=== PATIENT | female | born 1970 | race Caucasian/White ===

== ENCOUNTER 2018-12-22 14:51 | Emergency (ER) | payer OTHER ==
[2018-12-22] MEDS ORDERED: NORMAL SALINE 1000 ML 1,000 ML IV ONE (15:16)
--- NOTE | 2018-12-22 15:18 | ER Document Report ---
ED Medical Screen (RME) - General Chief Complaint: Constipation Stated Complaint: CONSTIPATION Time Seen by Provider: 12/22/18 15:13 Mode of Arrival: Ambulatory Information source: Patient Notes: Patient presents complaining of constipation for the past 2 weeks. Last bowel movement was a week ago. Patient is only had one bowel movement in the past 2 weeks. Patient complains of low back pain and dizziness that started yesterday. Patient reports decreased appetite. Patient reports abdominal fullness although denies any pain nausea or vomiting. Patient denies any history of problems with constipation. I have greeted and performed a rapid initial assessment of this patient. A comprehensive ED assessment and evaluation of the patient, analysis of test results and completion of the medical decision making process will be conducted by additional ED providers. - Related Data Allergies/Adverse Reactions: No Known Allergies Allergy (Unverified 12/22/18 15:11) Physical Exam - Vital signs Vitals: Temp Pulse Resp BP Pulse Ox 98.4 F 72 18 132/86 H 98 12/22/18 14:56 12/22/18 14:56 12/22/18 14:56 12/22/18 14:56 12/22/18 14:56 - Abdominal Inspection: Normal Bowel sounds: Hypoactive Course - Vital Signs Vital signs: Temp Pulse Resp BP Pulse Ox 98.4 F 72 18 132/86 H 98 12/22/18 14:56 12/22/18 14:56 12/22/18 14:56 12/22/18 14:56 12/22/18 14:56
--- NOTE | 2018-12-22 15:53 | RADIOLOGY REPORT (SQ) ---
EXAM DESCRIPTION: KUB/ABDOMEN (SINGLE VIEW) COMPLETED DATE/TIME: 12/22/2018 3:44 pm REASON FOR STUDY: constipation COMPARISON: None. NUMBER OF VIEWS: One view. TECHNIQUE: Supine radiographic image of the abdomen acquired. LIMITATIONS: None. FINDINGS: BOWEL GAS PATTERN: Normal bowel gas pattern. No dilated loops. CALCIFICATIONS: No suspicious calcifications. SOFT TISSUES: No gross mass or suggestion of organomegaly. HARDWARE: None in the abdomen. BONES: No acute fracture. No worrisome bone lesions. OTHER: No other significant finding. IMPRESSION: NO RADIOGRAPHIC EVIDENCE FOR ACUTE ABDOMINAL DISEASE. TECHNICAL DOCUMENTATION: JOB ID: [id number] [employer]- All Rights Reserved Reading location - IP/workstation name: [email or web address]
[2018-12-22 17:44] LABS: APPEARANCE,URINE SLIGHTLY-CLOUDY; BILIRUBIN,URINE NEGATIVE (NEGATIVE); COLOR,URINE YELLOW; GLUCOSE, URINE NEGATIVE (NEGATIVE); KETONES,URINE NEGATIVE (NEGATIVE); PROTEIN,URINE NEGATIVE (NEGATIVE); URINE SPECIFIC GRAVITY 1.015
[2018-12-22 18:12] LABS: ABSOLUTE BASOPHILS # (AUTO) 0.1 10^3/uL (0.0-0.2); ABSOLUTE EOSINOPHILS # (AUTO) 0.1 10^3/uL (0.0-0.6); ABSOLUTE LYMPHOCYTES (AUTO) 2.2 10^3/uL (0.5-4.7); ABSOLUTE MONOCYTES (AUTO) 0.5 10^3/uL (0.1-1.4); ABSOLUTE NEUT (AUTO) 2.9 10^3/uL (1.7-8.2); BASOPHILS % (AUTO) 0.9 % (0-2); EOSINOPHILS % (AUTO) 2.3 % (0-6); HEMATOCRIT 40.4 % (36.0-47.0); HEMOGLOBIN 13.9 g/dL (12.0-15.5); LYMPHOCYTES % (AUTO) 38.3 % (13-45); MEAN CORPUSCULAR HEMOGLOBIN 33.2 pg (27.0-33.4); MEAN CORPUSCULAR HGB CONC 34.4 g/dL (32.0-36.0); MEAN CORPUSCULAR VOLUME 97 fl (80-97); MONOCYTES % (AUTO) 8.4 % (3-13); PLATELET COUNT 230 10^3/uL (150-450); RED BLOOD COUNT 4.18 10^6/uL (3.72-5.28); RED CELL DISTRIBUTION WIDTH 12.6 % (11.5-14.0); SEGMENTED NEUTROPHILS % (AUTO) 50.1 % (42-78); TOTAL CELLS COUNTED % (AUTO) 100 %; WHITE BLOOD COUNT 5.7 10^3/uL (4.0-10.5)
[2018-12-22 18:30] LABS: ALBUMIN 4.4 g/dL (3.5-5.0); ALKALINE PHOSPHATASE 65 U/L (38-126); ANION GAP 12 (5-19); ASPARTATE AMINO TRANSFERASE 23 U/L (14-36); BILIRUBIN,DIRECT 0.2 mg/dL (0.0-0.4); BILIRUBIN,TOTAL 0.7 mg/dL (0.2-1.3); BLOOD UREA NITROGEN 9 mg/dL (7-20); CALCIUM 9.5 mg/dL (8.4-10.2); CARBON DIOXIDE 23 mmol/L (22-30); CHLORIDE 107 mmol/L (98-107); GLUCOSE 82 mg/dL (75-110); POTASSIUM 4.4 mmol/L (3.6-5.0); TOTAL PROTEIN 7.4 g/dL (6.3-8.2)
[2018-12-22] MEDS ORDERED: MAGNESIUM CITRATE 296 ML BOTTLE PO ONE (18:57)
--- NOTE | 2018-12-22 19:02 | EKG REPORT ---
SEVERITY:- BORDERLINE ECG - SINUS RHYTHM LVH BY VOLTAGE : Confirmed by: Anahi Ibrahim MD 22-Dec-2018 19:01:18
--- NOTE | 2018-12-22 19:12 | ER Document Report ---
ED General - General Chief Complaint: Constipation Stated Complaint: CONSTIPATION Time Seen by Provider: 12/22/18 15:13 Mode of Arrival: Ambulatory TRAVEL OUTSIDE OF THE [place] IN LAST 30 DAYS: No - HPI Notes: Patient is a 48-year-old female who presents emergency department for evaluation of constipation. She states she is only had one good bowel movement the last 2 weeks. She admits she just recently started weight watchers, just recently restarted phentermine. She states otherwise she is been eating increased salads and roughage, believe she is been staying hydrated. She is urinating. She said some fullness sensation in her lower abdomen and lower back. She denies any urinary symptoms. She states she has felt slightly dizzy. She is attributed that to just feeling poorly from the constipation. - Related Data Allergies/Adverse Reactions: No Known Allergies Allergy (Unverified 12/22/18 15:11) Home Medications: welbutrin, phenteramine, valium, control, Zaira Past Medical History - General Information source: Patient - Social History Smoking Status: Former Smoker Chew tobacco use (# tins/day): No Frequency of alcohol use: Occasional Drug Abuse: None Family History: Reviewed & Not Pertinent Patient has suicidal ideation: No Patient has homicidal ideation: No Psychiatric Medical History: Reports: Hx Anxiety Past Surgical History: Reports: Hx Gastric Bypass Surgery - Gastric sleeve several years ago Review of Systems - Review of Systems Constitutional: See HPI EENT: No symptoms reported Cardiovascular: No symptoms reported Respiratory: No symptoms reported Gastrointestinal: See HPI Genitourinary: No symptoms reported Musculoskeletal: No symptoms reported Skin: No symptoms reported Neurological/Psychological: See HPI Physical Exam - Vital signs Vitals: Temp Pulse Resp BP Pulse Ox 98.4 F 72 18 132/86 H 98 12/22/18 14:56 12/22/18 14:56 12/22/18 14:56 12/22/18 14:56 12/22/18 14:56 - Notes Notes: Vital signs reviewed, please refer to chart. Head is normocephalic, atraumatic. Pupils equal round, reactive to light. Neck is supple without meningismus. Heart is regular rate and rhythm. Lungs are clear to auscultation bilaterally. Abdomen is soft, nontender, normoactive bowel sounds throughout. Extremities without cyanosis, clubbing. Posterior calves are nontender. Peripheral pulses are equal. Skin is warm and dry. Patient is awake, alert, oriented x3. Cranial nerves II - XII are grossly intact without focal neurological deficits. Strength is plus 5 out of 5 bilateral upper and lower extremities. Sensation is intact. Reflexes symmetrical. Intact [id number], rapid alternating movements, [id number]. Course - Re-evaluation Re-evalutation: 12/22/18 19:12 Patient presents emergency department for evaluation. She normally has a bowel movement daily, is only had one in the last 2 weeks. I suspect this is secondary to the phentermine as well as dietary changes. I will send her home with some magnesium citrate. Her work-up here for dizziness is unremarkable. She is to follow-up with primary care, return to the ED with worsening or new concerning symptoms of any sort. - Vital Signs Vital signs: Temp Pulse Resp BP Pulse Ox 98.4 F 72 18 132/86 H 98 12/22/18 14:56 12/22/18 14:56 12/22/18 14:56 12/22/18 14:56 12/22/18 14:56 - Laboratory Result Diagrams: 12/22/18 18:00 12/22/18 18:00 Laboratory results interpreted by me: 12/22/18 17:20 Urine Urobilinogen 4.0 H - Diagnostic Test Radiology results interpreted by me: 12/22/18 19:12 KUB X-Ray 12/22/18 15:16 IMPRESSION: NO RADIOGRAPHIC EVIDENCE FOR ACUTE ABDOMINAL DISEASE. - EKG Interpretation by Me Additional EKG results interpreted by me: 12/22/18 19:12 Sinus mechanism with a rate of 60 bpm. Normal axis and intervals, no acute ST changes concerning for ischemia or infarction. Discharge - Discharge Clinical Impression: Constipation Qualifiers: Constipation type: unspecified constipation type Qualified Code(s): K59.00 - Constipation, unspecified Condition: Stable Disposition: HOME, SELF-CARE Instructions: Constipation ([facility]) Additional Instructions: Drink of the magnesium citrate and one sitting when you go home. You can also try the MiraLAX as discussed, 1 dose hourly for 4 to 6 hours tomorrow if you hav e not received results. Please be sure to increase your fluid intake. Follow- up with primary care next week. Return to the ED with worsening or new concerning symptoms of any sort.
[2018-12-22 19:37] VITALS: BP 147/89
== END 2018-12-22 19:35 | disposition home or self-care (01) ==
LOC: ER 14:51
DX: K59.00 Constipation, unspecified (principal); R42 Dizziness and giddiness; F41.9 Anxiety disorder, unspecified; Z79.899 Other long term (current) drug therapy; Z79.3 Long term (current) use of hormonal contraceptives; Z87.891 Personal history of nicotine dependence; Z98.84 Bariatric surgery status
CPT/HCPCS: 93005; 99284; 96360; 36415; 84443; 85025; 80053; 81001; 74018; 93010; J3490; J7030